=== PATIENT | female | born 1945 | race Caucasian/White ===

== ENCOUNTER 2022-01-08 12:30 | Outpatient (RCR) | payer MEDICARE, SELFPAY ==
--- NOTE | 2021-12-12 15:23 | PTOPEVAL ---
PHYSICAL THERAPY EVALUATION and PLAN OF CARE Thank you for referring Argenis Hennessy to [facility].? The patient is scheduled to be seen for therapy? 2x/week for 4 weeks. Please review, sign, date and return this plan of care SANTOS. I agree with and certify that the following plan of care is medically necessary. Referring Physician Date Evaluation Outpatient Past Medical History Cardiovascular History Hx Hypertension Yes Integumentary History Hx Other Skin Disorders Yes: roasia Reproductive History Diagnosis back pain, bilateral hand pain , right foot pain Onset 1 year Subjective Information intermittent back pain. states Query Text:As Reported By Patient/ that she is generally ok when Family just sitting but when she goes to stand up she experiences increased back pain. states that it lasts for just a few minutes. Also experiences bilateral foot pain and achiness and fatigue in the feet and legs. She experiences occasional numbness in the right lateral three toes. She is able to move her foot around and the numbness will subside. bilateral hand pain stating that they will ache - she can still do all of the things she needs and wants to do. Self Report Pain Assessment Right Foot/Feet Reported Pain Level 0 Pain Description Aching Spine, Lumbar Reported Pain Level 2 Pain Description Aching,Tightness Pain Score Pain Score 2,0: Self Report Interventions Used Interventions Used By Clinicians Exercise Cervical and Lumbar ROM Lumbar ROM Lumbar Flexion Active Mid Sarah Query Text:Hands to: Lumbar Comments limited segmenal mobility of lumbar spine with increased mobility of thoracic spine Lower Extremity Range of Motion General Lower Extremity Range of Motion Gross Lower Extremity Range of Motion decreased bilateral hip Comments internal rotation Lower Extremity Muscle Strength Testing Hip Strength Right Hip Flexion Strength 4- Good - Hip Extension Strength 3- Fair - Hip Abduction Strength 3+ Fair + Left Hip Flexion Strength 3+ Fair + Hip Extension Strength 3- Fair - Hip Abduction Strength 3+ Fair + Knee Str
--- NOTE | 2022-01-08 13:06 | PTOPEVAL ---
PHYSICAL THERAPY DISCHARGE NOTE Thank you for referring Argenis Hennessy to [facility]. Please review, sign, date and return this plan of care SANTOS. I agree with and certify that the following plan of care is medically necessary. Referring Physician Date Discharge Diagnosis back pain, bilateral hand pain , right foot pain Onset 1 year Subjective Information States that her back pain is Query Text:As Reported By Patient/ somewhat better and she thinks Family that sometimes when she experiences pain it is related to how she was sitting or for how long. States she can have some back pain when performing certain chores but it typically only occurs with that task and then stops. states that her feet are somewhat better. 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 Feels that her hands are feeling better. relates some of the pain to the cold weather over winter. Timing of Pain Assessment Assessment Self Report Self Report Pain Level 0 Lumbar ROM Lumbar Flexion Active Ankle Query Text:Hands to: Lower Extremity Muscle Strength Testing Hip Strength Right Hip Flexion Strength 4+ Good + Hip Extension Strength 4- Good - Hip Abduction Strength 4- Good - Left Hip Flexion Strength 4+ Good + Hip Extension Strength 4- Good - Hip Abduction Strength 4- Good - Knee Strength Bilateral Knee Flexion Strength 5 Normal Knee Extension Strength 5 Normal Upper Extremity Muscle Strength Testing General Upper Extremity Strength Gross Upper Extremity Strength Comments right skilled nursing facilities professional: 48lb/pressure ( dominant) left skilled nursing facilities professional: 40lb/pressure grossly 4+/5 rotator cuff bilaterally Muscle Length Testing Muscle Length Testing Left Hamstring Length -30 Query Text:(90 - 90 Position) Right Hamstring Length -30 Query Text:(90 - 90 Position) Right Prone Knee Flexor Muscle Length ( 100 degrees) Left Prone Knee Flexor Muscle Length ( 100 degrees)
== END 2022-01-08 14:33 | disposition home or self-care (01) ==
LOC: ANHPT 12:30
DX: M79.641 Pain in right hand (principal); M79.642 Pain in left hand
CPT/HCPCS: 97014; 97110; 97112; 97162; 97530; G0283